=== PATIENT | female | born 1990 | race Asian ===

== ENCOUNTER → 2019-06-30 | Outpatient (CLI) | payer OTHER ==
[2019-06-30 12:52] LABS: BASOPHILS # (AUTO) 0.03 x10^3/uL (0-0.1); BASOPHILS % (AUTO) 0 % (0-1); EOSINOPHILS # (AUTO) 0.08 x10^3/uL (0-0.4); EOSINOPHILS % (AUTO) 1 % (1-7); LYMPHOCYTES # (AUTO) 2.25 x10^3/uL (1-3.4); LYMPHOCYTES % (AUTO) 29 % (22-44); MD NO; MEAN CORPUSCULAR HEMOGLOBIN 30.4 pg (27.0-34.8); MEAN CORPUSCULAR HGB CONC 33.4 g/dL (32.4-35.8); MEAN CORPUSCULAR VOLUME 91.1 fL (80-100); MEAN PLATELET VOLUME 9.2 fL (7.4-10.4); MONOCYTES # (AUTO) 0.41 x10^3/uL (0.2-0.8); MONOCYTES % (AUTO) 5 % (2-9); NEUTROPHILS % (AUTO) 65 % (42-75); PLATELET COUNT 235 x10^3/uL (130-400); RED BLOOD COUNT 4.35 x10^6/uL (3.82-5.3)
[2019-06-30 14:23] LABS: CHLORIDE 109 mmol/L (98-107)
[2019-06-30 14:50] LABS: ALANINE AMINOTRANSFERASE 23 U/L (12-78); ALBUMIN 3.9 g/dL (3.4-5.0); ALKALINE PHOSPHATASE 44 U/L (45-117); ANION GAP 5 mmol/L (5-15); BILIRUBIN,TOTAL 0.6 mg/dL (0.2-1.0); CALCIUM 8.4 mg/dL (8.5-10.1); CHOL/HDL RATIO 2.9; CHOLESTEROL, TOTAL 172 mg/dL (140-239); CREATININE 0.55 mg/dL (0.55-1.02); FOLATE LEVEL 9.8 ng/mL (3.1-17.5); HDL CHOL % 35 % (28-40); HDL CHOLESTEROL (DIRECT) 60 mg/dL (40-60); LDL CHOLESTEROL,CALCULATED 101 mg/dL (54-169); LDL/HDL RATIO 1.7 (0.5-3.0); TOTAL PROTEIN 7.8 g/dL (6.4-8.2); TRIGLYCERIDES 56 mg/dL (50-200); VLDL CHOLESTEROL 11 mg/dL (0-25)
== END | disposition home or self-care (01) ==
LOC: CFH 07:45
PROVIDERS: ATTEND Internal Medicine
DX: Z00.00 Encounter for general adult medical examination without abnormal findings (principal)
CPT/HCPCS: 36415; 80053; 80061; 82306; 82607; 82746; 84443; 85025

== ENCOUNTER 2020-02-19 20:18 | Emergency (ER) | payer OTHER ==
[~2020-02-19] VITALS: Ht 152.4 cm; Wt 53.9 kg
--- NOTE | 2020-02-19 20:40 | NUR ---
THIS IS A 30Y F THAT REPORTS LUQ PAIN X2DAYS THAT COMES AND GOES. PT DENIES ANY MEDICAL HX OR HX OF SAME. PT DENIES N/V/D NO FEVERS. STS PAIN WORSENS WHEN SHE TAKES DEEP BREATH OR STANDS UP STRAIGHT. PT CONNECTED TO MONITORING VSS. SISTER AT BEDSIDE FOR SUPPORT
--- NOTE | 2020-02-19 20:41 | NUR ---
RAINA AT BEDSIDE TO ASSESS
--- NOTE | 2020-02-19 20:52 | NUR ---
XRAY AT THIS TIME
--- NOTE | 2020-02-19 21:04 | NUR ---
PT UP TO RESTROOM FOR URINE SAMPLE AT THIS TIME
--- NOTE | 2020-02-19 21:12 | NUR ---
URINE SENT TO LAB, TECH AT BEDSIDE FOR EKG AT THIS TIME
[2020-02-19 21:18] LABS: HCG UR SG 1.013 (1.003-1.030); MICROSCOPIC NOT IND
[2020-02-19] MEDS ORDERED: MAALOX/HYOSCYAMINE/LIDOCAINE 45 ML BTL ONE (21:40)
[2020-02-19 21:43] LABS: BASOPHILS % (AUTO) 0 % (0-1); EOSINOPHILS % (AUTO) 1 % (1-7); LYMPHOCYTES % (AUTO) 20 % (22-44); MEAN CORPUSCULAR HEMOGLOBIN 30.2 pg (27.0-34.8); MEAN CORPUSCULAR HGB CONC 33.8 g/dL (32.4-35.8); MEAN PLATELET VOLUME 8.8 fL (7.4-10.4); MONOCYTES % (AUTO) 9 % (2-9); NEUTROPHILS % (AUTO) 70 % (42-75); PLATELET COUNT 240 x10^3/uL (130-400); RED BLOOD COUNT 4.35 x10^6/uL (3.82-5.3); RED CELL DISTRIBUTION WIDTH 12.8 % (9.6-15.2)
--- NOTE | 2020-02-19 21:43 | NUR ---
PT MEDICATED PER MAR
[2020-02-19 21:44] LABS: ALANINE AMINOTRANSFERASE 22 U/L (12-78); ANION GAP 4 mmol/L (5-15); CHLORIDE 106 mmol/L (98-107); CREATININE 0.64 mg/dL (0.55-1.02)
[2020-02-19 21:46] LABS: MD NO
[2020-02-19 21:49] LABS: ALKALINE PHOSPHATASE 54 U/L (45-117); BILIRUBIN,TOTAL 0.2 mg/dL (0.2-1.0); TOTAL PROTEIN 8.1 g/dL (6.4-8.2)
--- NOTE | 2020-02-19 21:59 | NUR ---
RAINA AT BEDSIDE FOR RECHECK
[2020-02-19] MEDS ORDERED: MAALOX/HYOSCYAMINE/LIDOCAINE 45 ML BTL PO ONE (22:00)
[2020-02-19] MEDS ORDERED: KETOROLAC 30 MG/1 ML ONE (22:25)
[2020-02-19] MEDS ORDERED: KETOROLAC 30 MG/1 ML IM ONE (22:30)
--- NOTE | 2020-02-19 22:45 | NUR ---
PT REPORTS IMPROVEMENT IN PAIN AFTER TORODOL.
[2020-02-19 23:34] VITALS: BP 115/64
== END 2020-02-19 23:48 | disposition home or self-care (01) ==
LOC: ED 23:15
DX: R07.89 Other chest pain (principal); M54.6 Pain in thoracic spine; R94.31 Abnormal electrocardiogram [ECG] [EKG]
CPT/HCPCS: 36415; 71045; 80053; 81003; 81025; 83690; 84703; 85025; 85379; 93005; 96372; 99285; J1885